=== PATIENT | female | born 2005 | race Caucasian/White ===

== ENCOUNTER 2025-07-12 01:27 | Day surgery (SDC) | payer OTHER ==
[2025-07-12 01:45] VITALS: BMI 35.3
[2025-07-12] MEDS ORDERED: hydrALAZINE 20 MG/ML VIAL SLOW IVP PRN (02:27)
== END 2025-07-12 04:50 | disposition home or self-care (01) ==
LOC: CSHLD/OP 01:27
PROVIDERS: ATTEND Family Medicine
DX: O36.8130 Decreased fetal movements, third trimester, not applicable or unspecified (principal); Z67.40 Type O blood, Rh positive; Z88.6 Allergy status to analgesic agent; Z3A.37 37 weeks gestation of pregnancy
CPT/HCPCS: 76819; 96360; 99283